=== PATIENT | male | born 1970 | race Caucasian/White ===

== ENCOUNTER → 2018-06-08 | Outpatient (CLI) | payer OTHER ==
[2018-06-08 15:23] LABS: CALCIUM 9.5 mg/dL (8.5-10.1); POTASSIUM 4.2 mmol/L (3.5-5.1)
--- NOTE | 2018-06-08 16:22 | EKG ---
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 CAMARA : 1970 Requested By: Stephie Carreon Order Number: [id number] MD: Aravind Huitron Measurements Intervals [place] Rate: 76 P: 7 HI: 170 QRS: -18 QRSD: 92 T: 12 QT: 363 QTc: 409 Interpretive Statements Sinus rhythm Normal tracing No previous ECG available for comparison Electronically Signed On 06-08-2018 16:21:59 CDT by Aravind Huitron [email or web address] ��������������������������������������������� <ELECTRONICALLY SIGNED> ���������������������������������������� By: Aravind Huitron MD, [facility] ��������������������������������������������� 06/08/18 1621 1448 1448 Aravind Huitron MD, FACC /EPI
== END ==
LOC: CV 14:18
PROVIDERS: Anesthesiology
DX: E11.9 Type 2 diabetes mellitus without complications (principal)